=== PATIENT | female | born 1970 | race Hispanic/Latino ===

== ENCOUNTER 2024-02-05 06:55 | Day surgery (SDC) | payer OTHER, BC, SELFPAY ==
[2024-02-05 07:39] VITALS: BP 166/92; PULSE 97; RESP 20; TEMP 36.1; O2SAT 99
[2024-02-05] MEDS: LACTATED RINGERS 1,000 ML 42 ML IV (07:41)
--- NOTE | 2024-02-05 08:15 | P.HP_ITS ---
History of Present Illness History of Present Illness Date Patient Seen: 02/05/24 Time Patient Seen: 08:15 Chief complaint: Colonoscopy Narrative: Mio eyes a 53-year-old woman who presents for screening colonoscopy. She has never had 1 before. She has no family history of colon cancer. She has no other medical problems. [facility] Social History Smoking Status: Never smoker Meds Home Medications and Allergies Home Medications Medication Instructions Recorded Confirmed Type estradiol 0.045 mg-levonorgestrel 1 patch topical WEEKLY 02/04/24 02/05/24 History 0.015 mg/24hr weekly transderm patch (Climara Pro) levothyroxine 100 mcg tablet 100 mcg PO DAILY 02/04/24 02/05/24 History Allergies Allergy/AdvReac Type Severity Reaction Status Date / Time phenobarbital AdvReac Mild Agitated Verified 02/05/24 07:31 Exam Vital Signs (past 8 hours): - 02/05/24 07:39 Temperature 97 F L Pulse Rate 97 H Respiratory Rate 20 Blood Pressure 166/92 H Pulse Oximetry 99 Oxygen Delivery Method Room Air Oxygen Delivery Method Room Air Const General: healthy appearing Assessment & Plan Assessment and plan (1) Colon cancer screening: Status: Acute Plan We reviewed the risks and benefits of colonoscopy for colon cancer screening and she would like to proceed.
--- NOTE | 2024-02-05 09:34 | PM.OP.COLON ---
Operative Date/Time/Diagnoses Date of procedure: 02/05/24 Time of procedure: 09:34 Pre-op diagnosis: Colon cancer screening Post-op diagnosis: same Procedure & Clinicians Study performed: Colonoscopy Same procedure as scheduled: Yes Surgeon: Kannan Montgomery Procedure Notes Procedure in detail: Surgeon: Kannan Montgomery MD Anesthesia: Altagracia Young D.O. Procedure: The patient was brought to the endoscopy suite, placed in left lateral decubitus position. The patient was connected to monitoring devices. A time-out was performed. Sedation was administered. Once the patient was adequately sedated, a digital rectal exam was performed and was normal. The scope was then inserted and advanced to the cecum where the appendiceal orifice was identified and photographed. The scope was then slowly withdrawn over greater than 6 minutes. The mucosa was thoroughly inspected. No abnormalities were found. The scope was retroflexed in the rectum. No abnormalities were seen. The scope was straightened and removed. The patient was awakened and brought to recovery. Scope withdrawal time: 6 minutes and 30 seconds Sedation time: 16 minutes EBL: 0 Findings: Normal colon Post-procedure Recommendations: Colonoscopy in 10 years Disposition: PACU
[2024-02-05 09:39] VITALS: BP 122/76; PULSE 83; RESP 15; TEMP 36.1; O2SAT 100
[2024-02-05 09:41] VITALS: BP 134/75; PULSE 85; RESP 12; O2SAT 99
[2024-02-05 09:48] VITALS: BP 128/76; PULSE 83; RESP 16; TEMP 36.1; O2SAT 99
[2024-02-05 09:53] VITALS: BP 136/82; PULSE 82; RESP 16; O2SAT 99
== END 2024-02-05 10:04 | disposition home or self-care (01) ==
PROVIDERS: PCP Family Medicine; Referring Provider Surgery; Visit Provider Surgery
PROC: 0DJD8ZZ Inspection of Lower Intestinal Tract, Via Natural or Artificial Opening Endoscopic (ICD-10-PCS; CPT 45378; principal; 2024-02-05 08:15)
DX: Z12.11 Encounter for screening for malignant neoplasm of colon (principal)
CPT/HCPCS: 45378; J2704